=== PATIENT | female | born 1960 | race Caucasian/White ===

== ENCOUNTER 2017-06-12 15:31 | Emergency (ER) | payer OTHER ==
[2017-06-12 15:37] VITALS: RESP 18; TEMP 97.5; O2SAT 96
[2017-06-12] MEDS ORDERED: IBUPROFEN 600 MG TAB PO ONE (16:09)
--- NOTE | 2017-06-12 16:14 | EDPHY ---
H & P Time Seen by Provider: 06/12/17 15:55 HPI/ROS: CHIEF COMPLAINT: Left foot injury HISTORY OF PRESENT ILLNESS: 56-year-old female presents to the emergency department with injury to her left foot. The patient was at work wearing her shoes then she dropped a heavy table on the dorsal aspect of her left foot. Incident happened at 3:30 p.m. this afternoon. She is able to ambulate however this does cause pain. She complains of isolated pain in the left foot. Denies pain in her ankle. Denies any other complaints. ROS: Denies numbness or tingling in her toes, pain in her left ankle or calf. Past Medical/Surgical History: DVT, PE, diverticulitis, hysterectomy Social History: Smoking Status: Former smoker Physical Exam: On examination the patient has swelling and some ecchymosis to the dorsal aspect of her left midfoot. She has pain with palpation diffusely across the 1st through 4th metatarsals. Normal sensation to light touch with normal 2 point discrimination. Strong dorsalis pedis pulse on the dorsal aspect of her left foot. Full dorsiflexion. Full range of motion of the left ankle. Nontender to palpate the plantar aspect of the left foot. Calf is nontender. Achilles tendon is intact. No abrasion or evidence of puncture wound. Her gait is not tested. Constitutional: Initial Vital Signs Temperature (C) 36.4 C 06/12/17 15:35 Heart Rate 64 06/12/17 15:35 Respiratory Rate 18 06/12/17 15:35 Blood Pressure 133/79 H 06/12/17 15:35 O2 Sat (%) 96 06/12/17 15:35 O2 Delivery Mode Room Air Allergies/Adverse Reactions: azithromycin Allergy (Verified 06/12/17 15:35) Penicillins Allergy (Verified 06/12/17 15:35) Sulfa (Sulfonamide Antibiotics) Allergy (Verified 06/12/17 15:35) Home Medications: Medication Instructions Recorded Cipro 06/12/17 MDM/Departure - MDM Imaging Results: Imaging Impressions Foot X-Ray 06/12/17 16:07 Impression: 1. No acute osseous abnormality seen left foot. 2. Soft tissue swelling over the metatarsals. 3. Moderate calcaneal spurs. Imaging: I viewed and interpreted images myself Procedures: Patient was placed in a postop shoe and examined post application in good placement with normal [employer]. Medications Given: Discontinued Medications Ibuprofen (Motrin) 600 mg PO EDNOW ONE Stop: 06/12/17 16:10 Last Admin: 06/12/17 16:14 Dose: 600 mg ED Course/Re-evaluation: 56-year-old female presents to the emergency department with injury to her left foot. X-rays reveal no fractures. She was placed in a postop shoe and given orthopedic referral. The patient states that this did happen at work and she understands that she will likely need to follow-up with Occupational Health. She feels that she can perform her normal job. - Depart Disposition: Home, Routine, Self-Care Clinical Impression: Contusion of left foot Qualifiers: Encounter type: initial encounter Qualified Code(s): S90.32XA - Contusion of left foot, initial encounter Condition: Good Instructions: Foot Contusion (ED) Additional Instructions: Ibuprofen 600mg every 8 hours for pain as directed. Postop shoe for comfort and support to help minimize flexion. Ice, elevate. Return if you develop numbness or tingling in her toes, feelings of weakness in her foot, or if you feel worse in any way. Referrals: Nahun Alvarado MD [Medical Doctor] - 5-7 days, call for appt. (Orthopedic surgeon on-call)
[2017-06-12 17:14] VITALS: BP 161/87; PULSE 61
== END 2017-06-12 17:07 | disposition home or self-care (01) ==
DX: S90.32XA Contusion of left foot, initial encounter (principal); Z87.891 Personal history of nicotine dependence; W20.8XXA Other cause of strike by thrown, projected or falling object, initial encounter; Y99.0 Civilian activity done for income or pay; Y93.89 Activity, other specified
CPT/HCPCS: L4386